=== PATIENT | female | born 1955 | race Caucasian/White ===

== ENCOUNTER 2021-11-25 01:35 | Day surgery (SDC) | payer MEDICARE, SELFPAY ==
[2021-11-08 14:11] VITALS: BMI 26.7
[2021-11-25 13:01] VITALS: BP 155/95; PULSE 85; RESP 18; TEMP 36.8; O2SAT 98
[2021-11-25] MEDS: LACTATED RINGERS 1,000 ML 150 ML IV CONT (13:11)
--- NOTE | 2021-11-25 13:12 | WPDGICN ---
Assessment and Plan Assessment and plan (1) Positive colorectal cancer screening using Cologuard test: Code(s): R19.5 - Other fecal abnormalities Status: Acute Assessment and Plan: Patient found to have positive screening Cologuard test. For this reason colonoscopy will be performed. Further recommendations will be given after endoscopy. GI Consult Note Consult date/time: 11/25/21 13:12 Reason for consult: Positive Cologuard test HPI: Mell Valenzuela is a 66 year old female presents for screening colonoscopy on referral from primary care. Patient found to have positive Cologuard test in January 2021. Patient presents today for further evaluation. She reports that her bowel habits are normal. She denies abdominal pain. She has had no bleeding. Her family history is noncontributory. Review of Systems Review of Systems: Review of systems noncontributory. [facility] Past Medical History Medical History (Updated 11/25/21 @ 13:13 by Naga Jones MD) Anxiety Other hyperlipidemia UTI (urinary tract infection) Family History Family History Father Family history of migraine headaches Family history of elevated blood lipids Mother Family history of elevated blood lipids Sibling Family history of elevated blood lipids Other Family history of alcoholism Family history of arthritis Family history of malignant neoplasm Social History Social History Smoking status: Never smoker Second hand tobacco smoke exposure: No Alcohol intake: never Living arrangements: with family Spiritual care concerns: No Meds Home Medications and Allergies Home Medications Medication Instructions Recorded Confirmed Type amitriptyline 25 mg tablet 25 mg PO DAILY #90 tabs 01/25/21 11/08/21 Rx lovastatin 20 mg tablet 20 mg PO QPM #90 tabs 03/29/21 11/08/21 Rx clonazepam 1 mg tablet 1 mg PO DAILY #135 tabs 04/29/21 11/08/21 Rx levothyroxine 75 mcg tablet 75 mcg PO DAILY #90 tabs 06/04/21 11/08/21 Rx doxycycline hyclate 20 mg tablet 20 mg PO DAILY 07/08/21 11/08/21 History ruxolitinib 1.5 % topical cream 1 applic topical BID 07/08/21 11/08/21 History (Opzelura) gabapentin 300 mg capsule 300 mg PO QHS #30 caps 09/14/21 11/08/21 Rx fluticasone propionate 50 2 spray intranasal DAILY #16 grams 10/05/21 11/08/21 Rx mcg/actuation nasal spray,suspension sodium sul 1.479 gram-potas ch See Rx Instructions PO PER PKG DIR 11/05/21 11/08/21 Rx 0.188 gram-magnes sul 0.225 gram #24 tabs tablet (Sutab) cider 1 tablet PO DAILY 11/08/21 11/08/21 History fmhpgur-Dd-grjxuirgyeufnpqi-tea 500 mg-100 mcg-300 mg-60 mg tab (Apple Cider Vinegar Plus) d-mannose 500 mg capsule 500 mg PO DAILY 11/08/21 11/08/21 History lactobacillus combination no.8 3 1 cell PO DAILY 11/08/21 11/08/21 History billion cell capsule multivit,Ca,iron,hmv-TG-hgxlbsa-hwjfaem-xsot-HWQY 1 cap PO DAILY 11/08/21 11/08/21 History 3 mg-133 mcg capsule (Body, Hair, Skin and Nails) multivitamin with minerals-folic 1 tablet PO DAILY 11/08/21 11/08/21 History acid 0.4 mg tablet ruxolitinib 1.5 % topical cream 1 applic topical DAILY 11/08/21 11/08/21 History (Opzelura) venlafaxine 75 mg capsule,extended 75 mg PO DAILY #30 caps 11/18/21 Rx release 24 hr Allergies Allergy/AdvReac Type Severity Reaction Status Date / Time spironolactone Allergy Mild Nausea Verified 11/25/21 13:07 alprazolam Allergy Unknown rash Verified 11/25/21 12:49 Penicillins Allergy Unknown unknown Verified 11/25/21 12:49 Chocolate Allergy Mild Rash Uncoded 11/25/21 12:49 Vital Signs Vital Signs - 24 hr 11/25/21 13:01 Temperature 98.2 F Pulse Rate 85 Respiratory Rate 18 Blood Pressure 155/95 H Pulse Oximetry 98 Oxygen Delivery Room Air Exam Narrative: Physical exam reveals patient to be alert. Vital
--- NOTE | 2021-11-25 13:21 | WPDANESEPPF ---
Anes - Initial Pre Proc Eval Procedure: Operation Date: 11/25/21 14:00 Proposed Procedures p Colonoscopy - Naga Jones MD Date/Time: 11/25/21 13:21 Surgeon: Naga Jones MD Pre Op Diagnosis: positive cologuard Patient Data Age: 66 Gender: F Height: 1.65 m Weight: 74.9 kg Last Vital Signs Temp 36.8 C 11/25/21 13:01 Pulse 85 11/25/21 13:01 Resp 18 11/25/21 13:01 BP 155/95 H 11/25/21 13:01 Pulse Ox 98 11/25/21 13:01 O2 Del Method Room Air 11/25/21 13:01 Allergies Allergy/AdvReac Type Severity Reaction Status Date / Time spironolactone Allergy Mild Nausea Verified 11/25/21 13:07 alprazolam Allergy Unknown rash Verified 11/25/21 12:49 Penicillins Allergy Unknown unknown Verified 11/25/21 12:49 Chocolate Allergy Mild Rash Uncoded 11/25/21 12:49 Home Medications Medication Instructions Recorded Confirmed Type amitriptyline 25 mg tablet 25 mg PO DAILY #90 tabs 01/25/21 11/08/21 Rx lovastatin 20 mg tablet 20 mg PO QPM #90 tabs 03/29/21 11/08/21 Rx clonazepam 1 mg tablet 1 mg PO DAILY #135 tabs 04/29/21 11/08/21 Rx levothyroxine 75 mcg tablet 75 mcg PO DAILY #90 tabs 06/04/21 11/08/21 Rx doxycycline hyclate 20 mg tablet 20 mg PO DAILY 07/08/21 11/08/21 History ruxolitinib 1.5 % topical cream 1 applic topical BID 07/08/21 11/08/21 History (Opzelura) gabapentin 300 mg capsule 300 mg PO QHS #30 caps 09/14/21 11/08/21 Rx fluticasone propionate 50 2 spray intranasal DAILY #16 grams 10/05/21 11/08/21 Rx mcg/actuation nasal spray,suspension sodium sul 1.479 gram-potas ch See Rx Instructions PO PER PKG DIR 11/05/21 11/08/21 Rx 0.188 gram-magnes sul 0.225 gram #24 tabs tablet (Sutab) cider 1 tablet PO DAILY 11/08/21 11/08/21 History wofvvwx-Kk-ufixjpywzjwjsujs-tea 500 mg-100 mcg-300 mg-60 mg tab (Apple Cider Vinegar Plus) d-mannose 500 mg capsule 500 mg PO DAILY 11/08/21 11/08/21 History lactobacillus combination no.8 3 1 cell PO DAILY 11/08/21 11/08/21 History billion cell capsule multivit,Ca,iron,waw-SI-yowwunv-fashlul-yilz-HSXM 1 cap PO DAILY 11/08/21 11/08/21 History 3 mg-133 mcg capsule (Body, Hair, Skin and Nails) multivitamin with minerals-folic 1 tablet PO DAILY 11/08/21 11/08/21 History acid 0.4 mg tablet ruxolitinib 1.5 % topical cream 1 applic topical DAILY 11/08/21 11/08/21 History (Opzelura) venlafaxine 75 mg capsule,extended 75 mg PO DAILY #30 caps 11/18/21 Rx release 24 hr Patient hx anesthesia problems: post op nausea/vomiting Family hx anesthesia problems: none Results Review: All pre-operative results and documents have been reviewed as part of the pre-operative evaluation. [facility] Past Medical History Medical History Anxiety Hypothyroidism (acquired) Other hyperlipidemia Family History Family History Father Family history of migraine headaches Family history of elevated blood lipids Mother Family history of elevated blood lipids Sibling Family history of elevated blood lipids Other Family history of alcoholism Family history of arthritis Family history of malignant neoplasm Social History Social History Smoking status: Never smoker Second hand tobacco smoke exposure: No Alcohol intake: never Living arrangements: with family Spiritual care concerns: No Anes - Eval Final PreProcedure Day of Procedure 11/25/21 13:21 Patient weight: overweight Heart: regular rate and rhythm Lungs: clear to auscultation Airway: Mallampati scale class II Neurological: alert and oriented Last oral intake: >/= 8 hours ASA classification: II Emergent: no Anesthetic plan: proceed Anesthesia type and monitoring: general GIVS and standard monitoring Results Review: All pre-operative results and documents have been reviewed as part
[2021-11-25 13:47] VITALS: BP 129/83; PULSE 79; RESP 15; O2SAT 99
--- NOTE | 2021-11-25 13:54 | SUR.OPER ---
Only On of two Sigmoid Colon Polyps was retrieved, Dr. Jones was notified and is aware.
== END 2021-11-25 14:25 | disposition home or self-care (01) ==
PROVIDERS: PCP Family Medicine; Visit Provider Internal Medicine Gastroenterology
PROC: 0DJD8ZZ Inspection of Lower Intestinal Tract, Via Natural or Artificial Opening Endoscopic (ICD-10-PCS; CPT 45378; principal; 2021-11-25 14:00)
DX: R19.5 Other fecal abnormalities (principal); K63.5 Polyp of colon; K64.8 Other hemorrhoids; E03.9 Hypothyroidism, unspecified; F41.9 Anxiety disorder, unspecified; E78.5 Hyperlipidemia, unspecified
CPT/HCPCS: 45385; 88305; J2704; J7120

== ENCOUNTER 2022-07-01 10:29 | Outpatient (CLI) | payer MEDICARE, SELFPAY ==
[2022-07-01 19:39] LABS: Alanine Aminotransferase 28 U/L (6-35); Albumin Level 4.7 g/dL (3.5-5.1); Alkaline Phosphatase 119 U/L (38-126); Anion Gap 9 mmol/L (8-16); Aspartate Amino Transferase 34 U/L (14-36); Bilirubin,Total 0.9 mg/dL (0.2-1.3); Blood Urea Nitrogen 18 mg/dL (7-17); Calcium 9.3 mg/dL (8.4-10.2); Carbon Dioxide 26 mmol/L (22-30); Chloride 103 mmol/L (98-107); Cholesterol 178 mg/dL (0-200); Estimated Glomerular Filt Rate 56; Glucose 129 mg/dL (65-110); HDL Direct 42 mg/dL; Potassium 3.9 mmol/L (3.4-5.0); Sodium 138 mmol/L (137-145); Triglycerides 206 mg/dL (<150)
[2022-07-01 19:50] LABS: LDL Cholesterol Direct 97 mg/dL
== END 2022-07-01 10:30 | disposition home or self-care (01) ==
LOC: ANHGOSHLAB 10:33
PROVIDERS: PCP Family Medicine; Visit Provider Family Medicine
DX: E03.9 Hypothyroidism, unspecified (principal); E78.49 Other hyperlipidemia; Z13.228 Encounter for screening for other metabolic disorders
CPT/HCPCS: 36415; 80053; 80061; 84443

== ENCOUNTER 2022-07-04 15:47 | Outpatient (CLI) | payer MEDICARE, SELFPAY ==
[2022-07-05 10:47] LABS: Hemoglobin A1C 5.6 % (<5.7)
== END 2022-07-04 15:48 | disposition home or self-care (01) ==
LOC: ANHGOSHLAB 15:49
PROVIDERS: PCP Family Medicine; Visit Provider Family Medicine
DX: R73.01 Impaired fasting glucose (principal)
CPT/HCPCS: 36415; 83036

== ENCOUNTER → 2022-08-12 14:11 | Outpatient (CLI) | payer MEDICARE, SELFPAY ==
--- NOTE | ~2022-08-12 | XR_ITS ---
EXAMINATION: XR_RIBSBI_CR DATE: 08/12/2022 14:31 INDICATION: Bilateral mid anterior rib pain post recent fall TECHNIQUE: 3 views of the right ribs and 3 views of the left ribs were obtained. COMPARISON: None FINDINGS: Minimally displaced fracture of the bilateral anterior seventh and eighth ribs. Lungs are clear with no focal airspace opacities, pulmonary edema, pleural effusion or pneumothorax. Heart size is normal. Mild S-shaped thoracolumbar scoliosis. Old healed fracture deformity at the left humeral neck. IMPRESSION: 1. Bilateral anterior seventh and eighth rib fractures. No acute cardiopulmonary disease. Reviewed, dictated and finalized at location B. IMPRESSION: 1. Bilateral anterior seventh and eighth rib fractures. No acute cardiopulmonar y disease.
== END ==
PROVIDERS: PCP Family Medicine; Visit Provider Family Medicine
DX: S22.43XA Multiple fractures of ribs, bilateral, initial encounter for closed fracture (principal); X58.XXXA Exposure to other specified factors, initial encounter
CPT/HCPCS: 71110

== ENCOUNTER 2023-08-11 10:44 | Outpatient (CLI) | payer MEDICARE, SELFPAY ==
[2023-08-11 14:28] LABS: Alanine Aminotransferase 26 U/L (6-35); Albumin Level 4.3 g/dL (3.5-5.1); Alkaline Phosphatase 80 U/L (38-126); Anion Gap 6 mmol/L (8-16); Aspartate Amino Transferase 46 U/L (14-36); Bilirubin,Total 0.3 mg/dL (0.2-1.3); Blood Urea Nitrogen 18 mg/dL (7-17); Calcium 9.4 mg/dL (8.4-10.2); Carbon Dioxide 27 mmol/L (22-30); Chloride 108 mmol/L (98-107); Cholesterol 157 mg/dL (0-200); Estimated Glomerular Filt Rate > 60; Glucose 109 mg/dL (65-110); HDL Direct 42 mg/dL; Potassium 3.9 mmol/L (3.4-5.0); Sodium 141 mmol/L (137-145); Triglycerides 119 mg/dL (<150)
[2023-08-11 14:39] LABS: LDL Cholesterol Direct 96 mg/dL
[2023-08-11 15:19] LABS: Thyroid Stimulating Hormone Reflex 0.821 uIU/mL (0.465-4.68)
[2023-08-11 17:56] LABS: Hemoglobin A1C 5.8 % (<5.7)
== END 2023-08-11 10:45 | disposition home or self-care (01) ==
LOC: ANHGOSHLAB 10:46
PROVIDERS: PCP Family Medicine; Visit Provider Family Medicine
DX: E03.9 Hypothyroidism, unspecified (principal); E78.49 Other hyperlipidemia; R73.03 Prediabetes; Z13.220 Encounter for screening for lipoid disorders; Z13.228 Encounter for screening for other metabolic disorders
CPT/HCPCS: 36415; 80053; 80061; 83036; 84443

== ENCOUNTER 2024-03-25 12:08 | Outpatient (CLI) | payer MEDICARE, SELFPAY ==
--- NOTE | ~2024-03-25 | MM_ITS ---
EXAMINATION: MM screening roxann BI w masha HISTORY: Screening mammogram TECHNIQUE: Craniocaudal and mediolateral oblique 3-D tomosynthesis images were obtained and synthetic 2-D images were generated. CAD analysis was submitted and interpreted. COMPARISON: 12/14/2016 BREAST PARENCHYMAL COMPOSITION:Not Dense. There are scattered areas of fibroglandular density. FINDINGS: Areas of distortion are consistent with prior reduction mammoplasty. No suspicious distorti on are evident. No suspicious mass, calcification, or architectural distortion are identified in eith er breast to suggest malignancy. There has been no suspicious interval change. IMPRESSION: No mammographic evidence of malignancy. Recommend routine screening mammography in one year. BI-RADS Category 1: Negative Reviewed, dictated and finalized at location .
== END 2024-03-25 12:09 | disposition home or self-care (01) ==
LOC: MICIMG 12:10
PROVIDERS: PCP Family Medicine; Visit Provider Family Medicine
DX: Z12.31 Encounter for screening mammogram for malignant neoplasm of breast (principal)
CPT/HCPCS: 77063; 77067

== ENCOUNTER 2024-09-04 09:44 | Outpatient (CLI) | payer MEDICARE, SELFPAY ==
--- OUTSIDE RECORDS SUMMARY | 2024-09-04 10:54 | XMS_ITS | Clinical Summary ---
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
--- OUTSIDE RECORDS SUMMARY | 2024-09-04 10:54 | XMS_ITS | Encounter Summary ---
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
--- OUTSIDE RECORDS SUMMARY | 2024-09-04 10:54 | XMS_ITS | Continuity of Care Document ---
Author Organization [facility] Address [address] [place] [address] Phone Care Team Providers Care Research Engineer Name Role Phone Dejuan Youssef MD Unavailable Unavailable Allergies, Adverse Reactions, Alerts Substance Reaction Status Criticality Penicillins Rash, Swelling Active No Informatio n Medications Medication Instructions Dosage Effective Dates (start - stop) Status Comments levothyroxine 112 mcg tablet take 1 tablet by oral route every day 112 MCG - Active lovastatin 10 mg tablet take 1 tablet by oral route every day with the evening meal 10 MG - Active amitriptyline 10 mg tablet take 1 tablet by oral route every day at bedtime 10 MG - Active clonazepam 1 mg tablet take 1 tablet by oral route 3 times every day 1 MG - Active gabapentin 300 mg capsule take 1 capsule by oral route 3 times every day 300 MG - Active melatonin 5 mg tablet - Active multivitamin tablet - Active Probiotic 15 billion cell sprinkle capsule - Active Vitamin D3 25 mcg (1,000 unit) tablet - Active biotin 5 mg tablet - Active magnesium 200 mg tablet - Active Flovent HFA 110 mcg/actuation aerosol inhaler inhale 1 puff by inhalation route 2 times every day - Active Eucrisa 2 % topical ointment apply by topical route 2 times every day a thin layer to the affected area(s) 0.00 - Active doxycycline hyclate 100 mg capsule take 1 capsule by oral route 2 times every day 100 MG - Active venlafaxine 25 mg tablet take 1 tablet by oral route 3 times every day with food 25 MG - Active Procedures Procedure Date X-ray exam knee, 3 views Office/outpatient visit,est, mod 2022 X-ray exam knee, 3 views Global/Postop followup visit Total Knee Replacement Revision of kneecap Cryotherapy Combo Unit X-ray exam knee, 4+ views Office/outpatient visit,arianna salomon 2021 Advance Directives Directive Yes / No Effective Date File Name No Information Encounters Encounter Description Practice Location Reason(s) For Visit Diagnoses Date Provider Providers Copied on Encounter Office/outpat ient visit,est, mod [facility], [address], [id number], [place] tel:[phone] [facility] r knee (chief complaint) Presence of right artificial knee joint 3 Mikael Zaidi. [address] [facility], [address], [id number] , [place]. tel:[phone] Referring Provider: Dejuan Iqbal, [address] [facility] [address] [facility], [place], [address] . tel:[phone] [facility], [address], [id number], [place] tel:[phone] [facility] Follow Up of right knee (chief complaint) Presence of right artificial knee joint Sep-0 2 Mikael Zaidi. [address] [facility], [address], [id number] , [place]. tel:[phone] Referring Provider: Dejuan Iqbal, [address] [facility] [address], [place], [address] . tel:[phone] [facility], [address], [id number], [place] tel:[phone] [facility] Unilateral primary osteoarthrit is, right knee 2 Mikael Zaidi. [address] [facility], [address], [id number] , [place]. [phone] [facility], [address], [id number], [place] tel:[phone] [facility] Unilateral primary osteoarthrit is, right knee [address] [facility] [place] [address], [place], [place], [id number] , [place]. tel: [phone] Referring Provider: Dejuan Iqbal, [address] [place] [address], [place], [address] . tel:[phone] [facility], [address] [place] [address], [id number], [place] [phone] [facility] No Information 2 Mikael Zaidi. [address] [place] [address], [place], [place], [id number] , [place]. tel:[phone] [facility], [address] [place] [address], [id number], [place] tel:[phone] [facility] Unilateral primary osteoarthrit is, right knee [address] [place] [address], [place], [place], [id number] , [place]. tel:[phone] [facility], [address] [place] [address], [id number], [place] tel:[phone] [facility] Unilateral primary osteoarthrit is, right knee 2 Mikael Zaidi. [address] [place] [address], [place], [place], [id number] , [place]. tel:[phone] Office/outpat ient visit,new, [facility], [address] [place] [address], [place], [place], [id number], [place] tel:[phone] [facility] I Need A Right Knee Replacement (chief complaint) Unilateral primary osteoarthrit is, right knee [address] [place] [address], [id number] , [place]. tel: [phone] Referring Provider: Dejuan Iqbal, [address] [facility] [address], [place], [address] . tel:[phone] Family History Family Member Type Diagnosis Age At Onset Mother Problem (finding) Osteoarthritis Sister Problem (finding) Osteoarthritis Father Problem (finding) Alcoholism Brother Problem (finding) Osteoarthritis Brother Problem (finding) Alcoholism Father Problem (finding) Cancer, unknown Payers Payer name Insurance type Covered libertarian ID Authoriza tion(s) [place] Part B [id number] [facility] CI [id number] Social History Type Description Quantity Date Captured Comments Alcohol Use Details Unknown Caffeine Use Details Unknown Tobacco Use Status Current non-smoker Smoking Status Never smoker Non-Smoking Tobacco Use Details : No Details Available : No Details Available Sex Female Vital Signs Date / Time: Height Weight BMI Pulse Rate Blood Pressure Temperature Respiratory Rate Body Surface Area Head Circumference Head Circ. Percentile Wt./[place]. Percentile BMI percentile Pulse Ox Inhaled Ox 2:50 PM 64.00 in 79.379 kg (175.00 lbs) 30.0 4 kg/m eter (2) 1.89 meter(2) Chief Complaint And Reason For Visit From encounter dated '08/18/2022 15:10'. r knee (chief complaint). Description: patient presents to the office today for follow up r tka Reason For Referral Reason For Referral No Information Plan Of Treatment Date Type Action Status Referral Ordered: X-ray exam knee, 3 views RT knee ordered Referral Ordered: X-ray exam knee, 4+ views RT knee ordered History Of Present Illness Encounter Date Complaint History Of Prese nt Illness r knee patient presents to the office today for follow up r tka Follow Up of right knee Mell pineda to office for first post-op on right total knee arthroplasty done on 12/31/21. Doing good. I Need A Right Knee Replacement patient presents to the office today for evaluation of right knee pain Functional Status Date Functional Assessmen t No Information Instructions Date Instruction Additional Infor mation No Information Assessments Type Assessment Date assessment Presence of right artificial kne e joint Patient Care Teams Name Effective Dates (start - stop) Status Members No Information
--- OUTSIDE RECORDS SUMMARY | 2024-09-04 10:54 | XMS_ITS | Encounter Summary ---
Author Organization [facility] Address [address] [place] [address] Care Team Providers Care Fourdrinier Wire Weaver Name Role Phone Unavailable Primary Care Provider Unavailabl e Encounter Details Date Type Department Care Team (Late st Contact Info) Description 12/22/1999 Outpatient Historical [facility] DATA COLLECTOR - Medical [facility] [address] [facility] [address] [address] Bryon Zapata MD [address] [facility] [address] [place] [address] Social History Tobacco Use Types Packs/Day Years Used Date Smoking Tobacco: Never Assessed Comments Unknown Sex and Gender Information Value Date Recorded Sex Assigned at Not on file 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
--- OUTSIDE RECORDS SUMMARY | 2024-09-04 10:54 | XMS_ITS | Encounter Summary ---
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
[2024-09-04 11:57] LABS: Hemoglobin A1C 5.9 % (<5.7)
[2024-09-04 12:22] LABS: Alanine Aminotransferase 23 U/L (6-35); Albumin Level 4.8 g/dL (3.5-5.1); Alkaline Phosphatase 93 U/L (38-126); Anion Gap 12 mmol/L (4-12); Aspartate Amino Transferase 29 U/L (14-36); Bilirubin,Total 0.6 mg/dL (0.2-1.3); Blood Urea Nitrogen 21 mg/dL (7-17); Calcium 9.5 mg/dL (8.4-10.2); Carbon Dioxide 26 mmol/L (22-30); Chloride 100 mmol/L (98-107); Cholesterol 177 mg/dL (0-200); Estimated Glomerular Filt Rate 41; Glucose 105 mg/dL (65-110); HDL Direct 45 mg/dL; Potassium 4.6 mmol/L (3.4-5.0); Sodium 138 mmol/L (137-145); Triglycerides 152 mg/dL (<150)
[2024-09-04 12:34] LABS: LDL Cholesterol Direct 99 mg/dL
[2024-09-04 13:32] LABS: Vitamin D 25 Hydroxy 50.4 ng/mL
== END 2024-09-04 09:45 | disposition home or self-care (01) ==
LOC: ANHGOSHLAB 09:47
PROVIDERS: PCP Emergency Medicine; Visit Provider Emergency Medicine
DX: E78.5 Hyperlipidemia, unspecified (principal); R53.83 Other fatigue; E11.9 Type 2 diabetes mellitus without complications; E55.9 Vitamin D deficiency, unspecified
CPT/HCPCS: 36415; 80053; 80061; 82306; 83036; 84443

== ENCOUNTER 2024-10-22 09:53 | Outpatient (CLI) | payer MEDICARE, SELFPAY ==
--- OUTSIDE RECORDS SUMMARY | 2024-10-22 09:59 | XMS_ITS | Clinical Summary ---
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
--- OUTSIDE RECORDS SUMMARY | 2024-10-22 09:59 | XMS_ITS | Encounter Summary ---
Author Organization [facility] Address [address] [place] [address] Care Team Providers Care Endocrinology Nurse Name Role Phone Unavailable Primary Care Provider Unavailabl e Encounter Details Date Type Department Care Team (Late st Contact Info) Description 12/22/1999 Outpatient Historical [facility] PRINCIPAL PROCESS ENGINEER - Medical [facility] [address] [facility] [address] [address] Bryon Zapata MD [address] [facility] [address] [place] [address] Social History Tobacco Use Types Packs/Day Years Used Date Smoking Tobacco: Never Assessed Comments Unknown Sex and Gender Information Value Date Recorded Sex Assigned at Not on file 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
--- OUTSIDE RECORDS SUMMARY | 2024-10-22 09:59 | XMS_ITS | Encounter Summary ---
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
--- OUTSIDE RECORDS SUMMARY | 2024-10-22 09:59 | XMS_ITS | Encounter Summary ---
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
--- OUTSIDE RECORDS SUMMARY | 2024-10-22 09:59 | XMS_ITS | Continuity of Care Document ---
Author Organization [facility] Address [address] [place] [address] Phone Care Team Providers Care Features Editor Name Role Phone Dejuan Youssef MD, MD Unavailable Unavailable Allergies, Adverse Reactions, Alerts [...] on Encounter Office/outpat ient visit,est, mod [facility], [address], [id number], [place] tel:[phone] [facility] r knee (chief complaint) Presence of right artificial knee joint 3 Mikael Zaidi. [address], [id number] , [place]. tel:[phone] Referring Provider: Dejuan Youssef MD S, [address] [facility], [place], [address] . tel:[phone] [facility], [address], [id number], [place] tel:[phone] [facility] Follow Up of right knee (chief complaint) Presence of right artificial knee joint Jan- 2 Mikael Zaidi. [address], [address], [id number] , [place]. tel:[phone] Referring Provider: Dejuan Youssef MD S, [address] [facility] [address] [facility], [place], [address] . tel:[phone] [facility], [address], [id number], [place] tel:[phone] [facility] Unilateral primary osteoarthrit is, right knee 2 Mikael Zaidi. [address], [address], [id number] , [place]. tel: [phone] [facility], [address], [id number], [place] [phone] [facility] [place] Unilateral primary osteoarthrit is, right knee 2 Mikael Zaidi. [address] [address], [place], [place], [id number] , [place]. tel: [phone] Referring Provider: Dejuan Iqbal, [address] [place] [address], [place], [address] . tel:[phone] [facility], [address] [place] [address], [id number], [place] tel:[phone] [facility] No Information 2 Mikael Zaidi. [address] [place] [address], [id number] , [place]. tel: [phone] [facility], [address] [place] [address], [id number], [place] tel:[phone] [facility] Unilateral primary osteoarthrit is, right knee 2 Mikael Zaidi. [address] [place] [address], [place], [place], [id number] , [place]. tel:[phone] [facility], [address] [place] [address], [id number], [place] [phone] [facility] Unilateral primary osteoarthrit is, right knee 2 Mikael Zaidi. [address] [address], [place], [place], [id number] , [place]. tel:[phone] Office/outpat ient visit,new, mod [facility], [address] [place] [address], [id number], [place] tel:[phone] [facility] I Need A Right Knee Replacement (chief complaint) Unilateral primary osteoarthrit is, right knee 2 Mikael Zaidi. [address], [id number] , [place]. tel: [phone] Referring Provider: Dejuan Youssef MD S, [address] [facility] [address], [place], [address] . tel:[phone] Family History Family Member Type Diagnosis Age At Onset Mother Problem (finding) Osteoarthritis Sister Problem (finding) Osteoarthritis Father Problem (finding) Alcoholism Brother Problem (finding) Osteoarthritis Brother Problem (finding) Alcoholism Father Problem (finding) Cancer, unknown Payers Payer name Insurance type Covered constitution party ID Authoriza tion(s) Medicare [place] Part B MB [id number] AARP CI [id number] Social History Type Description Quantity Date Captured [...] tka Follow Up of right knee Mell salas edwin to office for first post-op on right [...]
[2024-10-22 11:20] LABS: Alanine Aminotransferase 24 U/L (6-35); Albumin Level 4.8 g/dL (3.5-5.1); Alkaline Phosphatase 65 U/L (38-126); Anion Gap 11 mmol/L (4-12); Aspartate Amino Transferase 34 U/L (14-36); Bilirubin,Total 0.4 mg/dL (0.2-1.3); Blood Urea Nitrogen 19 mg/dL (7-17); Calcium 9.5 mg/dL (8.4-10.2); Carbon Dioxide 26 mmol/L (22-30); Chloride 104 mmol/L (98-107); Cholesterol 192 mg/dL (0-200); Estimated Glomerular Filt Rate 52; Glucose 103 mg/dL (65-110); HDL Direct 49 mg/dL; Potassium 4.5 mmol/L (3.4-5.0); Sodium 141 mmol/L (137-145); Triglycerides 130 mg/dL (<150)
[2024-10-22 11:31] LABS: LDL Cholesterol Direct 99 mg/dL
[2024-10-22 11:41] LABS: Vitamin D 25 Hydroxy 48.8 ng/mL
== END 2024-10-22 09:54 | disposition home or self-care (01) ==
LOC: ANHGOSHLAB 09:55
PROVIDERS: PCP Emergency Medicine; Visit Provider Emergency Medicine
DX: E55.9 Vitamin D deficiency, unspecified (principal); R53.83 Other fatigue; E78.5 Hyperlipidemia, unspecified
CPT/HCPCS: 36415; 80053; 80061; 82306; 84443

== ENCOUNTER 2025-04-16 13:32 | Outpatient (CLI) | payer MEDICARE, SELFPAY ==
--- NOTE | ~2025-04-16 | DEXA_ITS ---
Bone Density Report Name: MASSIEL BETANCOURT Age: 69 Sex: Female Ethnicity: White Date of : 1955 Indication: osteopenia; height loss; Referring Provider: ASHLEY DOAN Study: Bone densitometry was performed. Exam Date: April 16, 2025 Accession number: [id number] Bone Density: Region BMD T-score Z-score Classification AP Spine(L1-L4) 0.882 -1.5 0.5 Osteopenia Femoral Neck (Left) 0.645 -1.8 -0.1 Osteopenia Total Hip (Left) 0.836 -0.9 0.6 Normal Femoral Neck (Right) 0.653 -1.8 0.0 Osteopenia Total Hip (Right) 0.800 -1.2 0.3 Osteopenia Total Hip Mean 0.818 -1.1 0.5 Osteopenia World Health Organization criteria for BMD impression classify patients as: Normal (T-score at or above -1.0), Osteopenia (T-score between -1.0 and -2.5), or Osteoporosis (T-score at or below -2.5). 10-year Fracture Risk(1): Major Osteoporotic Fracture 11% Hip Fracture 1.7% Reported Risk Factors: [place] (), Neck BMD=0.645, BMI=23.7 (1) FRAX(R) Version 3.08. Fracture probability calculated for an untreated patient. Fracture probability may be lower if the patient has received treatment. Previous Exams: -- Region Exam Age BMD T-score BMD Change BMD Change Date g/cm2 vs Baseline vs Previous -- AP Spine (L1-L4) 04/16/2025 69 0.882 -1.5 -4.2%* -1.9% 12/14/2016 61 0.899 -1.3 -2.3% -2.3% 11/02/2007 52 0.921 -1.1 Total Hip(Left) 04/16/2025 69 0.836 -0.9 -12.6%* -7.6%* 12/14/2016 61 0.905 -0.3 -5.4%* -5.4%* 11/02/2007 52 0.957 0.1 Total Hip(Right) 04/16/2025 69 0.800 -1.2 -12.6%* -3.7%* 12/14/2016 61 0.831 -0.9 -9.2%* -9.2%* 11/02/2007 52 0.915 -0.2 -- *Denotes significance at 95% confidence level, LSC for AP Spine = 0.022 g/cm2, LSC for Total Hip = 0.027 g/cm2 Clinical Information Provided by Patient: Has used the following medications: Vitamin D, Calcium Patient maximum height was 65 Menopause Age: 49 Onset of menses at age 16 Number of children 2 Missed period for more than 6 months in a row Impression: The patient has low bone mass, based on the Left Femoral Neck T-score. The patient has an estimated ten-year risk of hip fracture of 1.7% and an estimated ten-year risk of major fracture of 11%, based on the WHO FRAX algorithm. The BMD for the Total Hip(Left) decreased, changing by -7.6% since the last DXA exam. The BMD for the Total Hip(Right) decreased, changing by -3.7% since the last DXA exam. Discussion: BONE DENSITY IS LOW AT ONE OR MORE SKELETAL SITES. This patient's lowest T-score is low at one or more skeletal sites. It meets the World Health Organization's (WHO) criteria for ?low bone mass? (T-score between -1.0 and -2.5). The patient's 10-year risk of fracture as calculated by FRAX is less than the threshold where pharmacological therapy is recommended by the National Osteoporosis Foundation (NOF). However, all treatment decisions require clinical judgment and consideration of individual patient factors, including patient preferences, comorbidities, previous drug use, risk factors not captured in the FRAX model (e.g., frailty, falls, vitamin D deficiency, increased bone turnover, interval significant decline in bone density) and possible under or overestimation of fracture risk by FRAX. The patient should follow a healthful lifestyle (good nutrition with adequate calcium and vitamin D, and appropriate weight-bearing exercise). Follow-Up: Consider repeating this study in 2 years to reassess this patient's status, or sooner if there is some new clinical indication. Reported by: MERCEDES on 04/16/2025 1:51:00 PM. Reviewed, dictated and finalized at location A.
== END 2025-04-16 13:33 | disposition home or self-care (01) ==
LOC: MICIMG 13:33
PROVIDERS: PCP Emergency Medicine; Visit Provider Emergency Medicine
DX: Z78.0 Asymptomatic menopausal state (principal); M85.88 Other specified disorders of bone density and structure, other site; M85.852 Other specified disorders of bone density and structure, left thigh; M85.851 Other specified disorders of bone density and structure, right thigh
CPT/HCPCS: 77080